=== PATIENT | female | born 2005 | race Caucasian/White ===

== ENCOUNTER 2024-12-22 13:45 | Outpatient (RCR) | payer BC, SELFPAY ==
--- NOTE | 2024-12-01 14:44 | OTOPEVAL1 ---
Assessment and note entered by KOSTAS Peraza/Mercedes, LINCOLNT OT Evaluation Information 12/01/24 Assessment Status Evaluation Diagnosis M79.631 Pain in right forearm Subjective Information Patient reports experiencing right forearm pain for about 2 weeks. She points to the dorsal forearm and states it radiated into the hand. Intermittent tingling. States she was prescribed steroids for 1 week and received a steroid injection as well. She reports this has helped a lot. She presents today stating she has no pain and in the last week her pain at worst was a 2/10 She reports pain after a shift at work at [employer]. 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 Assessment OT Clinical Summary Patient referred to OT with dx of right forearm pain. Signs and symptoms are consistent with radial tunnel. 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 She was instructed in nerve glides and strengthening HEP. Continued follow up indicated for use of modalities, therapeutic exercise, and HEP progression to facilitate reduced pain, improved strength, and improved functional use of her right, dominant UE for ADLs, work, and school. Plan of Care Interventions Therapeutic Exercise,Manual Therapy,Neuro Re- education,Therapeutic Activities,Ultrasound, Paraffin OT Services Indicated Yes Treatment Frequency and 1x/week for 4 weeks Duration These treatments will address the objective and functional deficits as defined above. The patient will be advanced safely and appropriately in order for the patient to progress towards his/her prior level of function. Additional exercises will be introduced and as well as a comprehensive home exercise program upon discharge, if needed, ?to ensure carryover of functional gains achieved in the clinic. This treatment plan has been reviewed and agreement upon by the patient.
--- NOTE | 2024-12-01 14:45 | OPREHPOC ---
Outpatient Therapy Plan of Care This is a Multidisciplinary Plan of Care that may contain components documented by all disciplines (PT, OT, and ST.) OT Problem 1 OT Problem #1 Knowledge Deficit OT Goal 1 Goal / Goal Update Patient to be independent with instructed materials. Target Visit 4 OT Problem 2 OT Problem #2 Impaired Flexibility OT Goal 1 Goal / Goal Update Patient to be able to complete upper limb tension test for the radial nerve on the right UE without onset of symptoms. Target Visit 4 OT Problem 3 OT Problem #3 Impaired Strength OT Goal 1 Goal / Goal Update Patient to improve functional strength of the right UE as measured by patient being able to progress to 4 lb. wrist strengthening 3x10 reps. 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 Target Visit 4
--- NOTE | 2024-12-22 14:34 | OTOPDC ---
Assessment and note entered by Robin Modi, KOSTAS/Mercedes, CHT OT D/C Summary 12/22/24 Diagnosis M79.631 Pain in right forearm Subjective Information Patient reports progress with her right forearm reporting less episodes of pain. She reports no longer experiencing pain after work. Reports one instance of pain with prolonged writing. 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 She reports good compliance with her HEP. Reported Pain Level Pain Score 0: Self Report Additional Pain Score Comments Typically she has 0/10. In the last 2 weeks she's experienced 2 instances of 3/10 pain. Assessment OT Clinical Summary Patient referred to OT with dx of right forearm pain. Signs and symptoms are consistent with radial tunnel. She has made progress with less instances of pain and improved functional use of the arm with ADLs. 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 Upper limb tension test no longer elicits tingling, just some residual reports of tightness. Reviewed HEP and patient is independent with all materials. Plan to D/C today with therapy goals met and patient independent with HEP. Plan of Care OT Services Indicated No
== END 2024-12-22 15:05 | disposition home or self-care (01) ==
LOC: ANHGOSHOT 13:45
PROVIDERS: PCP Internal Medicine; Visit Provider Nurse Practitioner
DX: M79.631 Pain in right forearm (principal)
CPT/HCPCS: 97110; 97165